=== PATIENT | male | born 1955 | race Caucasian/White ===

== ENCOUNTER 2021-04-26 17:21 | Inpatient (IN) | payer OTHER ==
[~2021-04-26] VITALS: Ht 177.8 cm; Wt 93.6 kg
[2021-04-26 19:13] LABS: BASOPHILS % (AUTO) 0.7 % (0.0-2.0); EOSINOPHILS % (AUTO) 3.6 % (1.0-6.0); LYMPHOCYTES # (AUTO) 2.2 K/uL (1.0-4.8); MEAN CORPUSCULAR HEMOGLOBIN 30.5 pg (26.0-34.0); MEAN CORPUSCULAR HGB CONC 33.3 G/dL (31.0-37.0); MEAN CORPUSCULAR VOLUME 91 fL (80-100); MONOCYTES % (AUTO) 13.1 % (2.0-9.0); NEUTROPHILS # (AUTO) 4.3 K/uL (1.8-7.7); NEUTROPHILS % (AUTO) 54.6 % (40.0-70.0); PLATELET COUNT (AUTO) 233 K/uL (150-450); RED BLOOD CELL COUNT(AUTO) 5.25 MIL/uL (4.50-5.90); RED CELL DISTRIBUTION WIDTH 13.2 % (11.5-14.5)
[2021-04-26] MEDS ORDERED: NITROGLYCERIN 0.4 MG SUBLINGUAL TABLET #25 SL ONE (19:15)
[2021-04-26] MEDS ORDERED: ASPIRIN 325 MG TABLET PO ONE (19:15)
[2021-04-26] MEDS ORDERED: NITROGLYCERIN 2% (1 GM=INCH) PACKET TP ONE (19:15)
[2021-04-26 19:21] LABS: ANION GAP 8 mmol/L (8-16); CALCIUM, TOTAL 9.2 mg/dL (8.8-10.5); CARBON DIOXIDE 27 mmol/L (22-29); CHLORIDE 102 mmol/L (98-107); CREATININE 1.07 mg/dL (0.60-1.30); GLOMERULAR FILTR. RATE CALC > 60 mL/min (>60); GLUCOSE,RANDOM 104 mg/dL (70-110); POTASSIUM 4.6 mmol/L (3.5-5.1); SODIUM SERUM 137 mmol/L (136-145); UREA NITROGEN, BLOOD 20 mg/dL (7-18)
[2021-04-26 19:26] LABS: ALANINE AMINOTRANSFERASE 311 U/L (12-78); ALBUMIN 3.8 g/dL (3.4-5.0); ALKALINE PHOSPHATASE 71 U/L (46-116); ASPARTATE AMINOTRANSFERASE 166 U/L (15-37); BILIRUBIN,TOTAL 0.4 mg/dL (0.1-1.0); CHOL/HDL RATIO 3.8 (4.2-7.3); CHOLESTEROL 167 mg/dL (131-200); CREATINE KINASE, TOTAL ONLY 65 U/L (39-308); HDL CHOLESTEROL 44 mg/dL (40-60); LDL CHOL (CALC.) 95 mg/dL (0-130); LIPASE 126 U/L (73-393); TOTAL PROTEIN, SERUM 8.9 g/dL (6.4-8.2); TRIGLYCERIDES 142 mg/dL (15-150)
[2021-04-26 19:52] LABS: B-TYPE NATRIURETIC PEPTIDE 19 pg/mL (0-100)
[2021-04-26] MEDS ORDERED: ACETAMINOPHEN 325 MG TABLET PO PRN (20:00)
[2021-04-26] MEDS ORDERED: ONDANSETRON HCL 4 MG/2 ML VIAL IVP PRN (20:00)
[2021-04-26 20:25] LABS: COVID AG,FIA SOURCE NASOPHARYNGEAL
[2021-04-26] MEDS: METOPROLOL TARTRATE 25 MG TABLET PO SCH (20:56)
[2021-04-26] MEDS ORDERED: HydrALAZINE HCL 20 MG/ML VIAL IVP PRN (21:15)
[2021-04-26] MEDS: NITROGLYCERIN 2% (1 GM=INCH) PACKET TP SCH (21:35)
[2021-04-27] MEDS: NITROGLYCERIN 2% (1 GM=INCH) PACKET TP SCH ×4 (05:51→17:08)
[2021-04-27 09:27] VITALS: BP 166/109
[2021-04-27] MEDS: METOPROLOL TARTRATE 25 MG TABLET PO SCH ×2 (09:33→20:51)
[2021-04-27 11:09] VITALS: BP 131/74
[2021-04-27] MEDS: ASPIRIN 81 MG CHEWABLE TABLET PO SCH (14:38)
[2021-04-27 15:06] LABS: APPEARANCE,URINE CLEAR (CLEAR); BILIRUBIN,URINE NEGATIVE (NEGATIVE); GLUCOSE, URINE (UA) NEGATIVE (NEGATIVE); KETONES,URINE NEGATIVE (NEGATIVE); LEUKOCYTE ESTERASE ,URINE NEGATIVE (NEGATIVE); NITRATE,URINE NEGATIVE (NEGATIVE); OCCULT BLOOD,URINE NEGATIVE (NEGATIVE); PROTEIN,URINE NEGATIVE (NEGATIVE); UROBILINOGEN,URINE 0.2 mg/dL (<=1.0)
[2021-04-27 15:11] LABS: AMPHET/METH SCREEN,URINE NEGATIVE (NEGATIVE); BARBITURATE SCREEN, URINE NEGATIVE (NEGATIVE); BENZODIAZEPINES SCREEN,URINE NEGATIVE (NEGATIVE); CANNABINOID SCREEN,URINE NEGATIVE (NEGATIVE); COCAINE SCREEN,URINE NEGATIVE (NEGATIVE); METHADONE SCREEN, URINE NEGATIVE (NEGATIVE); OPIATE SCREEN,URINE NEGATIVE (NEGATIVE)
[2021-04-27 15:16] LABS: PHENCYCLIDINE SCREEN,URINE NEGATIVE (NEGATIVE)
[2021-04-27 15:26] LABS: BACTERIA,URINE None Seen /HPF (None Seen); RBC,URINE None Seen /HPF (0-2); SQUAMOUS EPITHELIAL CELL,UR None Seen /LPF (None Seen); WBC,URINE None Seen /HPF (0-5)
[2021-04-27] MEDS: HEPARIN SODIUM,PORCINE 5,000 UNITS/ML VIAL SQ SCH (16:52)
[2021-04-27 17:00] VITALS: BP 156/75
[2021-04-27 20:27] VITALS: BP 146/93
[2021-04-27 23:35] VITALS: BP 132/89
[2021-04-28] MEDS: HEPARIN SODIUM,PORCINE 5,000 UNITS/ML VIAL SQ SCH ×3 (00:33→15:20)
[2021-04-28] MEDS: NITROGLYCERIN 2% (1 GM=INCH) PACKET TP SCH ×3 (00:34→12:00)
[2021-04-28 04:09] VITALS: BP 133/64
[2021-04-28] MEDS: ASPIRIN 81 MG CHEWABLE TABLET PO SCH (07:36)
[2021-04-28] MEDS: METOPROLOL TARTRATE 25 MG TABLET PO SCH (07:41)
[2021-04-28 07:57] VITALS: BP 131/88
[2021-04-28 10:14] LABS: ALANINE AMINOTRANSFERASE 239 U/L (12-78); ALBUMIN 3.1 g/dL (3.4-5.0); ALKALINE PHOSPHATASE 64 U/L (46-116); ANION GAP 8 mmol/L (8-16); ASPARTATE AMINOTRANSFERASE 114 U/L (15-37); BILIRUBIN,TOTAL 0.3 mg/dL (0.1-1.0); CALCIUM, TOTAL 8.6 mg/dL (8.8-10.5); CARBON DIOXIDE 27 mmol/L (22-29); CHLORIDE 103 mmol/L (98-107); CREATININE 1.16 mg/dL (0.60-1.30); GLOMERULAR FILTR. RATE CALC > 60 mL/min (>60); GLUCOSE,RANDOM 162 mg/dL (70-110); SODIUM SERUM 138 mmol/L (136-145); TOTAL PROTEIN, SERUM 7.5 g/dL (6.4-8.2); UREA NITROGEN, BLOOD 24 mg/dL (7-18)
[2021-04-28] MEDS ORDERED: ASPI-1450 PO (11:39)
[2021-04-28 11:40] VITALS: BP 143/85
[2021-04-28] MEDS ORDERED: METO25 PO (11:40)
[2021-04-28] MEDS ORDERED: ACET-2247 PO (11:40)
[2021-04-28 16:35] VITALS: BP 139/89
== END 2021-04-28 16:25 | DRG 313 ==
LOC: EMS 17:21 → 5S 04-27 06:06
PROVIDERS: ADMIT Internal Medicine; ATTEND Internal Medicine
DX: R07.89 Other chest pain (principal); I16.1 Hypertensive emergency; I10 Essential (primary) hypertension; K76.0 Fatty (change of) liver, not elsewhere classified; Z20.822 Contact with and (suspected) exposure to COVID-19; Z86.73 Personal history of transient ischemic attack (TIA), and cerebral infarction without residual deficits; Z86.16 Personal history of COVID-19; Z79.899 Other long term (current) drug therapy; Z79.82 Long term (current) use of aspirin; Z88.5 Allergy status to narcotic agent; Z91.013 Allergy to seafood; Z88.8 Allergy status to other drugs, medicaments and biological substances
CPT/HCPCS: 71045; 76700; 80053; 80061; 81001; 82550; 83690; 83880; 84484; 85025; 85379; 93005; 93306; 99285; J1644; 36415-L1; 36415-TC